=== PATIENT | female | born 1940 | race African-American/Black ===

== ENCOUNTER 2017-03-13 07:27 | Outpatient (CLI) | payer MEDICARE | END 2017-03-13 07:28 | disposition home or self-care (01) | LOC: BICMAMMO 07:27 | PROVIDERS: ATTEND Family Medicine | DX: R92.8 Other abnormal and inconclusive findings on diagnostic imaging of breast (principal); R92.1 Mammographic calcification found on diagnostic imaging of breast; Z85.3 Personal history of malignant neoplasm of breast | CPT/HCPCS: G0204; G0279; 77066 ==

== ENCOUNTER 2017-07-07 10:56 | Outpatient (CLI) | payer MEDICARE ==
--- NOTE | 2017-07-07 14:31 | MRI ---
MRI OF THE LUMBAR SPINE WITHOUT AND WITH CONTRAST: COMPARISON: 07/26/14. HISTORY: Low back pain with radiculopathy down the left leg. TECHNIQUE: Multiplanar, multisequence MR images were obtained of the lumbar spine without and with IV contrast. FINDINGS: The patient is status post fusion of L4 through S1 with bilateral pedicle screws. There is grade I a nterolisthesis of L4 and L5, unchanged. The vertebral bodies show no evidence of a fracture. The conus medullaris terminates normally at L1. The prevertebral and paraspinal soft tissues are unr emarkable. No abnormal enhancement is seen in the central canal. Laminectomies have been performed at L5. Susc eptibility artifact from the patient's hardware limits evaluation of L4 and L5. T12-L1: Unremarkable. L1-2: Unremarkable. L2-3: A small disk-osteophyte complex is seen. Mild bilateral posterior facet arthrosis. Mild cent ral canal stenosis. Moderate bilateral neural foraminal stenosis. L3-4: A moderate disk-osteophyte complex is seen. Moderate bilateral posterior disk arthrosis. Mod erate to severe central canal stenosis. Severe left and moderate right neural foraminal stenosis. L4-5: This level is fused. Moderate to severe bilateral posterior facet arthrosis. No central flip l stenosis. Artifact from the hardware limits evaluation of the neural foramina at this level. L5-S1: No significant posterior bulge or protrusion. Moderate bilateral posterior facet arthrosis. There is central canal stenosis. Mild bilateral neural foraminal stenosis. IMPRESSION: Stable degenerative changes of the lumbar spine as above. POS: [facility]
== END 2017-07-07 10:57 | disposition home or self-care (01) ==
LOC: MRI 10:56
PROVIDERS: ATTEND Family Medicine
DX: M47.26 Other spondylosis with radiculopathy, lumbar region (principal); M54.5 Low back pain
CPT/HCPCS: 72148; 72158

== ENCOUNTER 2019-02-12 08:55 | Outpatient (CLI) | payer MEDICARE ==
--- NOTE | 2019-02-12 09:29 | ULT ---
Exam: Bladder ultrasound: HISTORY: Polyuria No significant urinary bladder wall thickening. Prevoid bladder volume equals 115 cc. Post void bladd er volume equals 12 cc. IMPRESSION: Unremarkable urinary bladder ultrasound. No significant postvoid residual.
== END 2019-02-12 08:56 | disposition home or self-care (01) ==
LOC: BICULT 08:55
PROVIDERS: ATTEND Family Medicine
DX: R35.8 Other polyuria (principal)
CPT/HCPCS: 76856

== ENCOUNTER 2021-01-10 09:55 | Outpatient (CLI) | payer MEDICARE | END 2021-01-10 09:56 | disposition home or self-care (01) | LOC: BICMAMMO 09:55 | PROVIDERS: ATTEND Obstetrics & Gynecology | DX: Z12.31 Encounter for screening mammogram for malignant neoplasm of breast (principal); Z85.3 Personal history of malignant neoplasm of breast; Z98.890 Other specified postprocedural states | CPT/HCPCS: 77063; 77067 ==

== ENCOUNTER 2023-10-13 07:37 | Outpatient (CLI) | payer MEDICARE | END 2023-10-13 07:38 | disposition home or self-care (01) | LOC: BICMRI 07:37 | PROVIDERS: ATTEND Family Medicine | DX: R27.0 Ataxia, unspecified (principal); Z86.73 Personal history of transient ischemic attack (TIA), and cerebral infarction without residual deficits; I67.82 Cerebral ischemia | CPT/HCPCS: 70551 ==

== ENCOUNTER 2024-02-02 08:24 | Outpatient (CLI) | payer MEDICARE | END 2024-02-02 08:25 | disposition home or self-care (01) | LOC: SCSMRI 08:24 | PROVIDERS: ATTEND Family Medicine | DX: R42 Dizziness and giddiness (principal); R41.3 Other amnesia; R32 Unspecified urinary incontinence; R35.0 Frequency of micturition; I67.82 Cerebral ischemia; I73.89 Other specified peripheral vascular diseases | CPT/HCPCS: 70551 ==